=== PATIENT | female | born 1980 | race Caucasian/White ===

== ENCOUNTER 2022-06-12 18:35 | Emergency (ER) | payer OTHER, SELFPAY ==
--- NOTE | ~2022-06-12 | XR_ITS ---
EXAMINATION: XR KNEE, RIGHT CLINICAL INFORMATION: Pain. COMPARISON: None TECHNIQUE: Two views of the right knee. FINDINGS: No acute fracture or malalignment. Mild joint space narrowing of the medial compartment. Small joint effusion. XR/XR knee RT 2V IMPRESSION: 1. No acute fracture or malalignment. 2. Mild degenerative osteoarthritis of the medial compartment. 3. Small joint effusion.
[2022-06-12 18:38] VITALS: BP 145/89; PULSE 89; RESP 16; TEMP 36.6; O2SAT 98; BMI 25.0
--- NOTE | 2022-06-12 22:30 | ED_ITS ---
HPI - Extremity Injury (Lower) General Chief Complaint: Extremity Injury, Lower Stated Complaint: Knee inj today, swelling and bruising. hurts walkn Time Seen by Provider: 06/12/22 22:16 Source: patient Mode of arrival: ambulatory History of Present Illness HPI Narrative: 41-year-old female who was snowboarding earlier today and at approximately 11:00 hours this morning fell and at that time ice/board struck the medial aspect of the right patella and patient states that she had pain at the time but was able to move her leg no bruising. 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 Related Data Allergies Allergy/AdvReac Type Severity Reaction Status Date / Time No Known Allergies Allergy Verified 06/12/22 18:38 Review of Systems Review of Systems: Pertinent positives and negatives as stated in HPI [facility] Past Medical History Source: nursing notes reviewed Social History Social History Advance Directives: No Advance Directives Information Provided: No Physical Exam Vital Signs: Vital Signs: Last Vital Signs Temp 98 F 06/12/22 18:38 Pulse 89 06/12/22 18:38 Resp 16 06/12/22 18:38 BP 145/89 H 06/12/22 18:38 Pulse Ox 98 06/12/22 18:38 O2 Del Method 06/12/22 18:38 BMI result Body Mass Index 25.0 VITAL SIGNS: Reviewed. GENERAL: Well developed, well nourished, in no acute distress. HEAD: Normocephalic/atraumatic EYES: PERRLA, EOMI LUNGS: Normal breath sounds. CARDIOVASCULAR: Regular rate and rhythm without noted murmurs ABDOMEN: Soft, non-tender, non-distended with bowel sounds. RIGHT KNEE: There is mild swelling along the anterior aspect of the knee, patella is easily shifted from left to right, there is ecchymosis noted to the medial aspect, no tenderness to palpation along the lateral aspect of the tibial plateau or across the patella ligament, there is obvious tenderness palpation over the bruised area, drawer test is negative, [place]'s is negative NEUROLOGIC: Alert and oriented x 4. Strength and sensation to light touch were grossly intact x 4. Medical Decision Making Medical Decision Making MDM Narrative: 41-year-old female with soft tissue injury, I reviewed the x-ray and my interpretation is in agreement with radiology's impression of the study. I have low clinical suspicion for meniscal injury at this time. Patient was able to stand, bear weight, and pain has significantly decreased. Will place the knee in an Livan wrap and recommend that patient decrease her activity for the next 1-2 days and follow-up with your primary care provider as well as a sports medicine physician for further evaluation. Differential Diagnosis Differential Diagnoses: The differential diagnosis associated with the presentation includes Please see the discussion above Lab Data MDM Lab Attestation statement: I reviewed the patient's lab results. Please see the discussion above Radiology Impression Radiologist Impression: My interpretation is in agreement with radiology's impression of the imaging study. Discharge Plan Discharge Clinical Impression: Injury of knee, right Patient Disposition: Home, Self-Care Instructions: Knee Pain (ED), Swollen Knee Joint (ED) Additional Instructions: 1. I recommend [id number] Tylenol/ibuprofen as needed for pain control. Please decrease the amount of weight-bearing/walking that you engage in as well as decreasing the amount of knee flexion (stairs), would recommend that you attempt to apply ice to unexposed skin for 5-10 minutes, 3 to 4 times a day. 2. Follow-up with your primary care provider on Thursday morning and discuss referral to Sports Medicine. Return to the ER for any worsening or new symptoms. Stand Alone Forms: Work/School Release
--- NOTE | 2022-06-12 22:52 | PC.NURSE ---
lorna wrap applied to right knee, well tolerated by pt
== END 2022-06-12 22:52 | disposition home or self-care (01) ==
PROVIDERS: Emergency Provider Student in an Organized Health Care Education/Training Program
DX: S89.91XA Unspecified injury of right lower leg, initial encounter (principal); X50.1XXA Overexertion from prolonged static or awkward postures, initial encounter; Y93.23 Activity, snow (alpine) (downhill) skiing, snowboarding, sledding, tobogganing and snow tubing; Y92.828 Other wilderness area as the place of occurrence of the external cause; Y99.8 Other external cause status
CPT/HCPCS: 73560; 99282; 99283